=== PATIENT | female | born 2000 | race American Indian/Alaskan Native ===

== ENCOUNTER 2022-02-08 11:21 | Emergency (ER) | payer MEDICAID ==
[2022-02-08 11:52] VITALS: BP 110/80
--- NOTE | 2022-02-08 15:58 | Emergency Department Report ---
Abscess Boil HPI - HPI Chief Complaint: Skin/Abscess/Foreign Body Stated Complaint: VAGINAL CYST Time Seen by Provider: 02/08/22 15:47 Duration: 5 Days Location: Other Severity: Moderate History: Yes Pain, No Fever, No Purulent Drainage, No Numbness, No Foreign Body, No Previous History, No Insect Bite HPI: Patient is a 21-year-old female that comes to the ER, sent from the urgent care, with a left labial abscess. I started her on Bactrim but told her they did not know what else it required so they sent her to the ER. She denies fever or chills. Denies discharge or vaginal bleeding. Last menstrual period 2 weeks ago. She is sexually active. She states that she is having protected sex. She is accompanied by her mother and father to the ER. Allergies/Adverse Reactions: Allergies Allergy/AdvReac Type Severity Reaction Status Date / Time No Known Allergies Allergy Verified 02/08/22 16:11 ED Review of Systems ROS: Stated complaint: VAGINAL CYST Other details as noted in HPI Comment: All other systems reviewed and negative ED Past Medical Hx - Past Medical History Previous Medical History?: No - Surgical History Past Surgical History?: No - Social History Smoking Status: Never Smoker ED Abscess Boil Physical Exam - Exam General: Vital signs noted. No distress. Alert and acting appropriately. Size: 4 cm Exam: Yes Tenderness, Yes Fluctuance, Yes Normal Neurologic Exam, Yes Normal Circulation, No Surrounding Cellulites/Erythema, No Lymphangitis, No Crepitation, No Heart Murmur I & D Note - I & D Note I & D Note: 2% lidocaine, 2 mL, preprocedure. Abscess opened with #10 blade. Large amount of purulent drainage expressed. Wound cleaned. Wound care discussed. Patient tolerated well ED Course Vital Signs 02/08/22 11:47 Temperature 98.9 F Pulse Rate 108 H Respiratory 14 Rate Blood Pressure 110/80 O2 Sat by Pulse 99 Oximetry Critical care attestation.: If time is entered above; I have spent that time in minutes in the direct care of this critically ill patient, excluding procedure time. ED Medical Decision Making - Medical Decision Making Vital Signs 02/08/22 02/08/22 11:47 16:50 Temperature 98.9 F Pulse Rate 108 H 108 H Respiratory 14 14 Rate Blood Pressure 110/80 Blood Pressure 110/80 [Right] O2 Sat by Pulse 99 99 Oximetry I&D, tolerated well. Patient educated on wound care. Patient being discharged home with discharge plan of care including diet, activity, medications and follow-up. She has been given referral to [facility]. She understands she needs to follow-up in 48 hours to make sure this resolves. - Differential Diagnosis Abscess versus cyst versus mass ED Disposition Clinical Impression: Abscess Disposition: 01 HOME / SELF CARE / HOMELESS Is pt being admited?: No Does the pt Need Aspirin: No Condition: Stable Instructions: Skin Abscess Additional Instructions: Soak in Epson salt baths with warm water 3 times a day, for 20 minutes at a time Continue antibiotic given to you by urgent care [id number] Motrin or Tylenol for pain Follow-up with [facility] this week for recheck. Have given you referral below. Diet and activity as tolerated Referrals: PRIMARY CARE, [Primary Care Provider] - 3-5 Days NATO OCHOA MD [Staff Physician] - 3-5 Days Time of Disposition: 16:38
[2022-02-08] MEDS ORDERED: LIDOCAINE (1%) 10 MG/1 ML VIAL 20 ML MDV INFILTRATI SCH (16:30)
[2022-02-08] MEDS ORDERED: HYDROcodone/ACETAMINOPHEN 5-325 MG TAB PO SCH (16:30)
[2022-02-08] MEDS ORDERED: SODIUM CHLORIDE 0.9% IRR 500 ML BOTTLE IR SCH (16:30)
== END 2022-02-08 16:50 | disposition home or self-care (01) ==
LOC: ED 11:21
DX: N76.4 Abscess of vulva (principal)
CPT/HCPCS: 99282